=== PATIENT | female | born 1930 | race African-American/Black ===

== ENCOUNTER 2016-08-29 21:06 | Emergency (ER) | payer MEDICARE, OTHER ==
[2016-08-29] MEDS ORDERED: methylPREDNISolone Sod Succ/PF 125 MG/2 ML VIAL ONE (21:40)
== END 2016-08-30 00:35 | disposition home or self-care (01) ==
LOC: NAV ERS 21:06
DX: M79.81 Nontraumatic hematoma of soft tissue (principal); E03.9 Hypothyroidism, unspecified; E78.5 Hyperlipidemia, unspecified; I10 Essential (primary) hypertension; Z79.899 Other long term (current) drug therapy
CPT/HCPCS: 36415; 85652; 96372; J2930

== ENCOUNTER 2016-10-05 18:20 | Emergency (ER) | payer MEDICARE, OTHER ==
[2016-10-05] MEDS ORDERED: traMADol HCl 50 MG TAB ONE (18:41)
--- NOTE | 2016-10-05 19:59 | RAD ---
THREE VIEWS OF THE RIGHT ANKLE 10/05/16 INDICATION: Right ankle pain after fall. FINDINGS: No acute fracture or subluxation is evident. There is soft tissue swelling about the ankle. Enthesop athic change is seen off the calcaneus. There is scattered Monckeberg type calcifications within sof t tissues. IMPRESSION: No acute osseous abnormality. POS: [facility]
--- NOTE | 2016-10-05 20:00 | RAD ---
TWO VIEWS OF THE RIGHT ELBOW 10/05/16 INDICATION: Fall with pain. IMPRESSION: No acute fracture or subluxation is evident. No joint capsular distention is evident. Enthesopathic changes are seen off the olecranon process. COMMENTS: No comparisons are available. POS: [facility]
--- NOTE | 2016-10-05 20:15 | RAD ---
FOUR VIEWS OF THE RIGHT KNEE 10/05/16 INDICATION: History of fall with right knee pain. FINDINGS: No acute fracture or subluxation is evident. There is a right total knee prosthesis that projects in expected position. There is diffuse osteopenia. IMPRESSION: 1. No acute osseous abnormality. 2. Right total knee arthroplasty without overt evidence of complication. POS: [facility]
--- NOTE | 2016-10-05 20:41 | RAD ---
THREE VIEWS OF THE RIGHT FOOT 10/05/16 INDICATION: Fall with right foot pain. 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 There is a hallux rigidus inv olving the greater toe MTP joint. No acute fracture or subluxation is evident. Enthesopathic changes seen off the calcaneus. Monckeberg calcifications are seen within the soft tissues. IMPRESSION: 1. No acute fracture or subluxation. 2. Scattered osteoarthrosis. POS: [facility]
--- NOTE | 2016-10-05 20:43 | RAD ---
THREE VIEWS OF THE RIGHT HAND 10/05/16 INDICATION: History of fall with right hand pain. FINDINGS: There is scattered osteoarthrosis involving the wrist carpus, MCP and IP joints of the right hand. 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 There is diffuse osteopenia. No acute fracture is evident. IMPRESSION: No acute osseous abnormality. POS: [facility]
== END 2016-10-05 19:32 | disposition home or self-care (01) ==
LOC: NAV ERS 18:20
DX: S50.01XA Contusion of right elbow, initial encounter (principal); S90.01XA Contusion of right ankle, initial encounter; S90.31XA Contusion of right foot, initial encounter; S60.221A Contusion of right hand, initial encounter; I48.91 Unspecified atrial fibrillation; I49.9 Cardiac arrhythmia, unspecified; E03.9 Hypothyroidism, unspecified; E78.5 Hyperlipidemia, unspecified; E78.00 Pure hypercholesterolemia, unspecified; I10 Essential (primary) hypertension; M19.90 Unspecified osteoarthritis, unspecified site; M06.9 Rheumatoid arthritis, unspecified; Z79.899 Other long term (current) drug therapy; W10.8XXA Fall (on) (from) other stairs and steps, initial encounter

== ENCOUNTER 2016-12-26 19:10 | Emergency (ER) | payer MEDICARE, OTHER ==
[2016-12-26] MEDS ORDERED: Sodium Chloride 0.9% 500 ML ONE (19:39)
[2016-12-26 19:51] LABS: #Basophils 0.1 thou/uL (0.0-0.2); #Eosinphils 0.1 thou/uL (0.0-0.7); #Lymphocytes 1.8 thou/uL (1.20-3.40); #Monocytes 0.3 thou/uL (0.11-0.59); #Neutrophils 2.7 thou/uL (1.40-6.50); %Basophils 1.2 % (0.0-1.0); %Eosinophils 2.7 % (0.0-10.0); %Lymphocytes 35.3 % (21.0-51.0); %Monocytes 6.5 % (0.0-10.0); %Neutrophils 54.4 % (42.0-75.0); Hemoglobin 11.2 g/dL (12.0-16.0); Mean Corpuscular HGB CONC 31.1 g/dL (32.0-36.0); Mean Corpuscular Hemoglobin 29.8 pg (27.0-31.0); Mean Platelet Volume 7.9 fL (7.4-10.4); Platelet Count 169 thou/uL (130-400); RBC Distribution Width 14.3 % (11.5-14.5); Red Blood Cell (RBC) Count 3.76 mill/uL (4.20-5.40)
[2016-12-26 19:57] LABS: ALT (SGPT) 22 U/L (8-55); AST (SGOT) 25 U/L (5-34); Albumin 3.7 g/dL (3.4-4.8); Alkaline Phosphatase 62 U/L (40-150); Anion Gap 14 mmol/L (10-20); BUN (Urea Nitrogen) 17 mg/dL (9.8-20.1); Bilirubin, Total 0.3 mg/dL (0.2-1.2); CK (CPK) 57 U/L (29-168); Calc. Creatinine Clearance 0 mL/min (70-130); Calcium 9.1 mg/dL (7.8-10.44); Carbon Dioxide 25 mmol/L (23-31); Chloride 108 mmol/L (98-107); Estimated GFR-MDRD 50; Globulin 3.2 g/dL (2.4-3.5); Glucose 99 mg/dL (83-110); Potassium 4.7 mmol/L (3.5-5.1); Protein, Total 6.9 g/dL (6.0-8.3); Sodium 142 mmol/L (136-145)
[2016-12-26 20:03] LABS: CKMB 1.1 ng/mL (0-6.6); Troponin I 0.012 ng/mL (< 0.028)
--- NOTE | 2016-12-26 21:14 | RAD ---
PELVIS ONE VIEW 12/26/16 HISTORY: Fall with neck and shoulder pain. COMPARISON: None. FINDINGS: No acute fracture or malalignment. The lateral off-set of the femoral head/neck junction is similar. There are enthesopathic changes of the greater trochanters bilaterally. Severe pubic symphysitis. Numerous phleboliths projecting over the pelvis. The obturator rings are intact. IMPRESSION: No acute fracture. POS: [facility]
--- NOTE | 2016-12-26 21:24 | RAD ---
RIGHT KNEE FOUR VIEW 12/26/16 HISTORY: Fall. COMPARISON: Right knee radiographs 10/05/16. FINDINGS: There is heterotopic ossification. Right total knee arthroplasty. No periprosthesis fracture. IMPRESSION: No acute fracture. POS: [facility]
--- NOTE | 2016-12-26 21:25 | RAD ---
RIGHT ANKLE THREE VIEW 12/26/16 HISTORY: Fall. COMPARISON: Ankle radiograph 10/05/16. FINDINGS: There is a healing Barraza B distal fibular fracture. No acute superimposed fracture is seen. IMPRESSION: Healing subacute distal fibular fracture. POS: [facility]
--- NOTE | 2016-12-26 21:26 | RAD ---
LEFT HIP TWO VIEW 12/26/16 HISTORY: Fall. Pain. COMPARISON: None. FINDINGS: No acute fracture is appreciated. Enthesopathic changes of the greater trochanter. Obturator ring is intact. IMPRESSION: Moderate degenerative disease without acute fracture or malalignment. If the patient is acutely unab le to bear weight, followup CT or MRI is recommended to evaluate for radiographically occult fractur e. POS: [facility]
--- NOTE | 2016-12-26 21:27 | RAD ---
LEFT KNEE FOUR VIEW 12/26/16 HISTORY: Fall. COMPARISON: None. FINDINGS: Moderate joint effusion. Left total knee arthroplasty. No displaced fracture. IMPRESSION: No displaced periprosthetic fracture. POS: [facility]
--- NOTE | 2016-12-26 21:32 | RAD ---
CHEST ONE VIEW 12/26/16 HISTORY: Fall and hit head. Neck and shoulder pain. COMPARISON: Chest one view 11/17/14. FINDINGS: There is elevation of the right hemidiaphragm with leftward shift of mediastinum. There is a left perihilar air space opacity. Chronic pleural and parenchymal changes. IMPRESSION: 1. Elevation of the right hemidiaphragm may be chronic in nature due to nerve injury. This is s imilar. 2. Left perihilar air space opacity could be chronic parenchymal changes versus atelectasis or pneumonia. Followup two views of the chest recommended. POS: [facility]
--- NOTE | 2016-12-26 21:39 | CT ---
CT FACE WITHOUT CONTRAST 12/26/16 HISTORY: Fall. COMPARISON: None. FINDINGS: No displaced fracture of the face. The medial orbital jones, orbital roofs, orbital floors, zygoma, zygomatic arches, mandible are intact. Dense vascular calcifications of the carotid bulbs bilaterall y. Orbits are unremarkable. Left cheek soft tissue contusion over the zygoma which is intact. Orbits are intact. No retro-orbita l hematoma. IMPRESSION: No acute fracture of the face. POS: [facility]
[2016-12-26] MEDS ORDERED: traMADol HCl 50 MG TAB ONE (21:44)
--- NOTE | 2016-12-26 22:01 | CT ---
CT BRAIN WITHOUT CONTRAST 12/26/16 HISTORY: Fall, hit head, neck and shoulder pain. COMPARISON: CT brain 10/06/15. FINDINGS: The exam is limited due to streak artifact from clips along the posterior scalp/hair. Given this limitation, no acute territorial infarct or hemorrhage. No midline shift or mass effect. The ventricular size and extra-axial CSF spaces are normal for age. 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 Moderate microvascular ischemic changes. IMPRESSION: 1. No acute intracranial abnormality. 2. 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 3. Soft tissue contusions over the left cheek with intact zygoma. POS: [facility]
--- NOTE | 2016-12-26 22:08 | CT ---
CT CERVICAL SPINE WITHOUT CONTRAST 12/26/16 HISTORY: Fall and hit head. COMPARISON: None. FINDINGS: There is severe degenerative disease throughout the cervical spine. No displaced fracture is appreci ated. There is severe bilateral facet arthrosis throughout the cervical spine. There is 2 mm C2 over C3 and 3 mm C3 over C4 anterolisthesis due to extensive facet arthropathy. Bones are diffusely oste openic/osteoporotic. Patient is moving all throughout the exam also limiting evaluation. There is some scarring in the lung apices, otherwise there they are unremarkable. The visualized portions of the clavicles are unremarkable as well as the visualized ribs. There is some asymmetry of the medial portions of the clavicles with some mild anterior displacement of the right clavicular head relative to the left likely due to prior injury. IMPRESSION: 1. Extremely limited examination due to motion. No displaced fracture is appreciated. Severe fa cet arthropathy, degenerative disc space disease, as well as osteopenia/osteoporosis. 2. Old injury to the sternoclavicular joints bilaterally with old clavicular fracture as well a s what is felt to be chronic anterior displacement of the right clavicular head. POS: [facility]
--- NOTE | 2016-12-26 22:23 | RAD ---
CHEST TWO VIEW 12/26/16 HISTORY: Fall. COMPARISON: Chest one view same day. FINDINGS: There is continued elevation of the right hemidiaphragm. The left perihilar opacity is decreased. Chronic pleural and parenchymal changes. IMPRESSION: No acute intrathoracic abnormality. POS: [facility]
== END 2016-12-26 22:40 | disposition home or self-care (01) ==
LOC: NAV ERS 19:10
DX: S16.1XXA Strain of muscle, fascia and tendon at neck level, initial encounter (principal); S00.83XA Contusion of other part of head, initial encounter; S80.02XA Contusion of left knee, initial encounter; S80.01XA Contusion of right knee, initial encounter; S90.02XA Contusion of left ankle, initial encounter; S90.01XA Contusion of right ankle, initial encounter; I48.91 Unspecified atrial fibrillation; E03.9 Hypothyroidism, unspecified; I49.9 Cardiac arrhythmia, unspecified; E78.5 Hyperlipidemia, unspecified; I10 Essential (primary) hypertension; M19.90 Unspecified osteoarthritis, unspecified site; M06.9 Rheumatoid arthritis, unspecified; W18.30XA Fall on same level, unspecified, initial encounter
CPT/HCPCS: 36415; 70450; 70486; 71010; 71020; 72125; 72170; 80053; 82550; 82553; 84484; 85025; 93005; 96360; J7050

== ENCOUNTER 2017-01-30 21:23 | Emergency (ER) | payer MEDICARE, OTHER ==
--- NOTE | 2017-01-30 22:24 | CT ---
CT BRAIN 01/30/17 PROVIDED CLINICAL HISTORY: Head pain status post injury. FINDINGS: Comparison is made with the study dated 12/26/16. The ventricular system appears unchanged in size and morphology. There is no evidence for intracrani al hemorrhage or mass effect. Chronic microvascular ischemic changes are redemonstrated. The extracr anial soft tissues and osseous structures demonstrate no acute abnormality. IMPRESSION: No evidence for intracranial hemorrhage or mass effect. POS: [facility]
--- NOTE | 2017-01-30 22:25 | CT ---
CT CERVICAL SPINE 01/30/17 PROVIDED CLINICAL HISTORY: Neck pain status post injury. FINDINGS: Comparison is made with the study dated 12/26/16. There is no evidence for fracture or traumatic subluxation. Advanced cervical degenerative changes a re again seen. No prevertebral soft tissue swelling is evident. The visualized lung apices appear cl ear. IMPRESSION: No evidence for fracture or traumatic subluxation. POS: [facility]
--- NOTE | 2017-01-30 22:27 | CT ---
CT OF THE FACIAL BONES 01/30/17 PROVIDED CLINICAL HISTORY: Facial pain status post injury. FINDINGS: Comparison is made with the study dated 12/26/16. Remote appearing fracture of the left nasal bone is noted. There is no evidence for an acute fracture. The paranasal sinuses appear clear. Globes and ot her orbital contents appear unremarkable. Mild right supraorbital soft tissue swelling. IMPRESSION: No evidence for an acute fracture. POS: [facility]
--- NOTE | 2017-01-30 22:28 | RAD ---
RIGHT HIP RADIOGRAPHS TWO VIEWS 01/30/17 PROVIDED CLINICAL HISTORY: Right hip pain status post injury. FINDINGS: Comparison 12/26/16 pelvic radiograph. Degenerative changes are seen involving the right hip. There is no definite evidence for fracture or other acute osseous abnormality. If there is persistent clinical concern, conservative management a nd followup imaging are advised. IMPRESSION: As above. POS: [facility]
--- NOTE | 2017-01-30 22:41 | RAD ---
RIGHT KNEE RADIOGRAPHS FOUR VIEWS 01/30/17 PROVIDED CLINICAL HISTORY: Right knee pain status post injury. FINDINGS: Comparison 12/26/16. Postoperative changes of right total knee arthroplasty are redemonstrated without evidence for hardw are loosening or migration. There is no evidence for fracture or other acute osseous abnormality. If there is persistent clinical concern, conservative management and followup imaging are advised. IMPRESSION: As above. POS: [facility]
--- NOTE | 2017-01-30 22:44 | RAD ---
LEFT KNEE RADIOGRAPHS FOUR VIEWS 01/30/17 PROVIDED CLINICAL HISTORY: Left knee pain status post injury. FINDINGS: Comparison 12/26/16. Postoperative changes of left total knee arthroplasty are demonstrated without evidence for hardware loosening or migration. There is no evidence fracture or other acute osseous abnormality. If there is persistent clinical concern, conservative management and followup imaging are advised. IMPRESSION: As above. POS: [facility]
--- NOTE | 2017-01-30 22:46 | RAD ---
TWO VIEWS LEFT HIP 01/30/17 PROVIDED CLINICAL HISTORY: Left hip pain status post injury. FINDINGS: There is no evidence for fracture or other acute osseous abnormality. If there is persistent clinica l concern, conservative management and followup imaging are advised. IMPRESSION: As above. POS: [facility]
[2017-01-30] MEDS ORDERED: Lidocaine 1% 20 ML MDV ONE (22:48)
[2017-01-30] MEDS ORDERED: Bacitracin Zinc 1 Packet ONE (23:24)
== END 2017-01-30 23:39 | disposition home or self-care (01) ==
LOC: NAV ERS 21:23
DX: S01.521A Laceration with foreign body of lip, initial encounter (principal); S80.01XA Contusion of right knee, initial encounter; M25.552 Pain in left hip; I48.91 Unspecified atrial fibrillation; E03.9 Hypothyroidism, unspecified; E78.5 Hyperlipidemia, unspecified; I10 Essential (primary) hypertension; M06.9 Rheumatoid arthritis, unspecified; W18.30XA Fall on same level, unspecified, initial encounter
CPT/HCPCS: 40650; 70450; 70486; 72125; J2001

== ENCOUNTER 2017-02-06 14:02 | Emergency (ER) | payer MEDICARE, OTHER | END 2017-02-06 14:26 | disposition home or self-care (01) | LOC: NAV ERS 14:02 | DX: S01.511D Laceration without foreign body of lip, subsequent encounter (principal); I48.91 Unspecified atrial fibrillation; E03.9 Hypothyroidism, unspecified; E78.5 Hyperlipidemia, unspecified; I10 Essential (primary) hypertension; M06.9 Rheumatoid arthritis, unspecified; Z79.899 Other long term (current) drug therapy; W18.30XD Fall on same level, unspecified, subsequent encounter ==

== ENCOUNTER 2017-02-25 17:21 | Emergency (ER) | payer MEDICARE, OTHER | END 2017-02-25 17:51 | disposition home or self-care (01) | LOC: NAV ERS 17:21 | DX: S01.511D Laceration without foreign body of lip, subsequent encounter (principal); I48.91 Unspecified atrial fibrillation; E03.9 Hypothyroidism, unspecified; K57.90 Diverticulosis of intestine, part unspecified, without perforation or abscess without bleeding; E78.5 Hyperlipidemia, unspecified; I10 Essential (primary) hypertension; G47.30 Sleep apnea, unspecified; M06.9 Rheumatoid arthritis, unspecified; Z79.899 Other long term (current) drug therapy | CPT/HCPCS: 99283 ==

== ENCOUNTER 2017-05-30 19:41 | Emergency (ER) | payer MEDICARE, BC ==
--- NOTE | 2017-05-30 20:30 | RAD ---
ONE VIEW CHEST 05/30/17 COMPARISON: 12/26/16. HISTORY: Cough and congestion. Weakness. FINDINGS: Persistent elevation of the right hemidiaphragm and leftward deviation of the cardiomediastinal silho uette. Chronic changes in the lung parenchyma. Stable atherosclerosis of the aortic knob. No pneumoth orax. IMPRESSION: No significant interval change. POS: [facility]
[2017-05-30 20:57] LABS: #Basophils 0.1 thou/uL (0.0-0.2); #Eosinphils 0.1 thou/uL (0.0-0.7); #Monocytes 0.3 thou/uL (0.11-0.59); #Neutrophils 3.6 thou/uL (1.40-6.50); %Basophils 1.1 % (0.0-1.0); %Eosinophils 1.9 % (0.0-10.0); %Lymphocytes 19.7 % (21.0-51.0); %Monocytes 5.2 % (0.0-10.0); %Neutrophils 72.1 % (42.0-75.0); Mean Corpuscular Hemoglobin 29.8 pg (27.0-31.0); Mean Corpuscular Volume 92.9 fl (81.0-99.0); Mean Platelet Volume 11.3 fL (7.4-10.4); Platelet Count 128 thou/uL (130-400); RBC Distribution Width 14.2 % (11.5-14.5)
[2017-05-30 21:15] LABS: ALT (SGPT) 88 U/L (8-55); AST (SGOT) 95 U/L (5-34); Albumin 3.2 g/dL (3.4-4.8); Alkaline Phosphatase 59 U/L (40-150); Anion Gap 14 mmol/L (10-20); BUN (Urea Nitrogen) 17 mg/dL (9.8-20.1); Bilirubin, Total 0.6 mg/dL (0.2-1.2); Calc. Creatinine Clearance 0 mL/min (70-130); Calcium 8.3 mg/dL (7.8-10.44); Carbon Dioxide 25 mmol/L (23-31); Chloride 103 mmol/L (98-107); Estimated GFR-MDRD 51; Globulin 2.8 g/dL (2.4-3.5); Glucose 94 mg/dL (83-110); Potassium 5.2 mmol/L (3.5-5.1); Sodium 137 mmol/L (136-145)
[2017-05-30 21:16] LABS: CKMB 0.8 ng/mL (0-6.6); Troponin I 0.027 ng/mL (< 0.028)
== END 2017-05-30 22:30 | disposition home or self-care (01) ==
LOC: NAV ERS 19:41
DX: J20.9 Acute bronchitis, unspecified (principal); R53.1 Weakness; I48.91 Unspecified atrial fibrillation; E03.9 Hypothyroidism, unspecified; E78.5 Hyperlipidemia, unspecified; I10 Essential (primary) hypertension; G47.30 Sleep apnea, unspecified; Z79.899 Other long term (current) drug therapy
CPT/HCPCS: 71045; 80053; 82553; 83880; 84443; 84484; 85025; 93005; 94760

== ENCOUNTER 2017-10-27 20:16 | Emergency (ER) | payer MEDICARE, BC ==
[2017-10-27] MEDS ORDERED: Bacitracin Zinc 1 Packet ONE (21:03)
== END 2017-10-27 21:25 | disposition home or self-care (01) ==
LOC: NAV ERS 20:16
DX: T24.211A Burn of second degree of right thigh, initial encounter (principal); T31.0 Burns involving less than 10% of body surface; I48.91 Unspecified atrial fibrillation; E03.9 Hypothyroidism, unspecified; K57.90 Diverticulosis of intestine, part unspecified, without perforation or abscess without bleeding; E78.5 Hyperlipidemia, unspecified; I10 Essential (primary) hypertension; M19.90 Unspecified osteoarthritis, unspecified site; M06.9 Rheumatoid arthritis, unspecified; G47.30 Sleep apnea, unspecified; Z85.3 Personal history of malignant neoplasm of breast; Z79.899 Other long term (current) drug therapy; X11.8XXA Contact with other hot tap-water, initial encounter
CPT/HCPCS: 16020

== ENCOUNTER 2019-08-17 19:04 | Emergency (ER) | payer MEDICARE, BC ==
[2019-08-17] MEDS ORDERED: Oxymetazoline HCl 0.05% (30 ML BOT) ONE (19:09)
[2019-08-17] MEDS ORDERED: Labetalol HCl 100 MG/20 ML VIAL ONE (20:05)
[2019-08-17 20:09] LABS: #Basophils 0.1 thou/uL (0.0-0.2); #Eosinphils 0.1 thou/uL (0.0-0.7); #Lymphocytes 1.8 thou/uL (1.20-3.40); #Monocytes 0.3 thou/uL (0.11-0.59); #Neutrophils 2.8 thou/uL (1.40-6.50); %Basophils 1.4 % (0.0-1.0); %Eosinophils 2.4 % (0.0-10.0); %Lymphocytes 35.9 % (21.0-51.0); %Monocytes 5.6 % (0.0-10.0); %Neutrophils 54.9 % (42.0-75.0); Hemoglobin 13.3 g/dL (12.0-16.0); Mean Corpuscular HGB CONC 30.9 g/dL (32.0-36.0); Mean Corpuscular Hemoglobin 31.3 pg (27.0-31.0); Mean Platelet Volume 8.2 fL (7.4-10.4); Platelet Count 178 thou/uL (130-400); Red Blood Cell (RBC) Count 4.25 mill/uL (4.20-5.40); White Blood Cell (WBC) Count 5.1 thou/uL (4.8-10.8)
[2019-08-17 20:16] LABS: PTT 31.3 SEC (22.9-36.1)
[2019-08-17 20:21] LABS: Anion Gap 18 mmol/L (10-20); BUN (Urea Nitrogen) 19 mg/dL (9.8-20.1); Carbon Dioxide 22 mmol/L (23-31); Chloride 106 mmol/L (98-107); Sodium 140 mmol/L (136-145)
[2019-08-17 20:42] LABS: Calc. Creatinine Clearance 0 mL/min (70-130); Calcium 9.4 mg/dL (7.8-10.44); Estimated GFR-MDRD 44; Glucose 103 mg/dL (83-110)
[2019-08-17 20:44] LABS: Potassium 5.1 mmol/L (3.5-5.1)
[2019-08-17] MEDS ORDERED: ALPRAZolam 0.5 MG TAB ONE (21:20)
== END 2019-08-17 21:15 | disposition home or self-care (01) ==
LOC: NAV ERS 19:04
DX: R04.0 Epistaxis (principal); I10 Essential (primary) hypertension; I48.91 Unspecified atrial fibrillation; E03.9 Hypothyroidism, unspecified; E78.5 Hyperlipidemia, unspecified; E78.00 Pure hypercholesterolemia, unspecified; M06.9 Rheumatoid arthritis, unspecified; G47.30 Sleep apnea, unspecified; Z79.899 Other long term (current) drug therapy; Z79.82 Long term (current) use of aspirin
CPT/HCPCS: 30901; 80048; 85025; 85610; 85730; 96374

== ENCOUNTER 2019-08-20 19:33 | Emergency (ER) | payer MEDICARE, BC | END 2019-08-20 20:00 | disposition home or self-care (01) | LOC: NAV ERS 19:33 | DX: Z48.00 Encounter for change or removal of nonsurgical wound dressing (principal); I10 Essential (primary) hypertension; I48.91 Unspecified atrial fibrillation; E03.9 Hypothyroidism, unspecified; E78.5 Hyperlipidemia, unspecified; E78.00 Pure hypercholesterolemia, unspecified; M06.9 Rheumatoid arthritis, unspecified; M19.90 Unspecified osteoarthritis, unspecified site; G47.30 Sleep apnea, unspecified; Z79.82 Long term (current) use of aspirin; Z79.899 Other long term (current) drug therapy | CPT/HCPCS: 99282 ==